=== PATIENT | male | born 1940 | race Caucasian/White ===

== ENCOUNTER 2017-09-03 21:17 | Inpatient (IN) | payer MEDICARE, MEDICAID ==
[~2017-09-03] VITALS: Ht 172.7 cm; Wt 73.5 kg
--- NOTE | 2017-09-03 21:20 | NUR ---
PT TO ER BED 7. PT BIBRA C/O LOWER EXTREM EDEMA X 2 DAYS. PT PLACED IN GOWN AND ON PLASTIC SURGERY SPECIALIST. VSS/RESP EVEN UNLABORED/NAD NOTED/SKIN WARM AND DRY/DENIES N-V-D/AOX4. AWAITING MD JAY.
--- NOTE | 2017-09-03 21:20 | NUR ---
Note undone in EDM - 09/03/17 at 2308 by GABBY PT AMBULATORY TO ER BED 6 WITH CAREGIVER. PT BIBRA C/O LOWER EXTREM EDEMA X 2 DAYS. PT PLACED IN GOWN AND ON GRAVITY PROSPECTING OPERATOR. VSS/RESP EVEN UNLABORED/NAD NOTED/SKIN WARM AND DRY/DENIES N-V-D/AOX4. AWAITING MD JAY.
--- NOTE | 2017-09-03 21:30 | NUR ---
AT BEDSIDE FOR EVAL.
--- NOTE | 2017-09-03 22:00 | NUR ---
22G TO R WRIST USING ASEPTIC TECH, BLOOD OBTAINED AND HANDED OVER TO LAB AT BEDSIDE.
[2017-09-03 22:20] LABS: BASOPHILS % (AUTO) 0.3 % (0.0-2.0); EOSINOPHILS # (AUTO) 0.1 /CMM (0.0-0.7); EOSINOPHILS % (AUTO) 1.2 % (0.0-6.0); HEMATOCRIT 32 % (39-51); HEMOGLOBIN 10.4 g/dL (13.5-17.5); LYMPHOCYTES # (AUTO) 1.3 /CMM (0.8-4.8); LYMPHOCYTES % (AUTO) 14.5 % (20.0-44.0); MEAN CORPUSCULAR HEMOGLOBIN 34 PG (26.0-33.0); MEAN CORPUSCULAR HGB CONC 33 g/dl (31.0-36.0); MEAN CORPUSCULAR VOLUME 103 fL (80-96); MONOCYTES # (AUTO) 0.7 /CMM (0.1-1.30); MONOCYTES % (AUTO) 7.7 % (2.0-12.0); NEUTROPHILS # (AUTO) 6.9 /CMM (1.8-8.9); NEUTROPHILS % (AUTO) 76.3 % (43.0-81.0); PLATELET COUNT (AUTO) 521 /CMM (150-450); RDW COEFFICIENT OF VARIATION 21.3 (11.5-15.0); RED BLOOD CELL COUNT(AUTO) 3.08 MIL/uL (4.5-6.0); WHITE BLOOD COUNT (AUTO) 9.1 K/uL (4.3-11.0)
[2017-09-03 22:35] LABS: CALCIUM, SERUM 8.6 mg/dL (8.5-10.1); CARBON DIOXIDE 28 mmol/L (21-32); CHLORIDE 103 mmol/L (98-107); GLUCOSE 102 mg/dL (74-106); POTASSIUM 4.1 mmol/L (3.5-5.1); SODIUM SERUM 138 mmol/L (136-145); UREA NITROGEN, BLOOD 18 mg/dL (7-18)
[2017-09-03 22:38] LABS: INR 1.1 (0.87-1.13); PROTHROMBIN TIME 11.4 SECS (9.5-12.7)
[2017-09-03 22:43] LABS: TROPONIN I < 0.017 ng/mL (0.00-0.056)
[2017-09-03 22:48] LABS: ALANINE AMINOTRANSFERASE 54 U/L (12-78); ALBUMIN 2.2 g/dL (3.4-5.0); ALKALINE PHOSPHATASE 462 U/L (46-116); ASPARTATE AMINOTRANSFERASE 53 U/L (15-37); B-TYPE NATRIURETIC PEPTIDE 477 PG/ML (0-125); BILIRUBIN,DIRECT 0.3 mg/dL (0.0-0.2); BILIRUBIN,TOTAL 0.7 mg/dL (0.2-1.0); TOTAL PROTEIN, SERUM 6.9 g/dL (6.4-8.2)
--- NOTE | 2017-09-03 23:25 | NUR ---
ULTRASOUND AT BEDSIDE.
--- NOTE | 2017-09-03 23:55 | NUR ---
CALLED DIRECTOR OF AUTOMATION FOR TELE BED
--- NOTE | 2017-09-03 23:56 | NUR ---
PHONE NUMBER FOR DAUGHTER [phone].
[2017-09-04] MEDS ORDERED: MAG HYDROX/AL HYDROX/SIMETH 30 ML UDC PO PRN
[2017-09-04] MEDS ORDERED: ENOXAPARIN SODIUM 40 MG/0.4 ML DISP.SYRIN SQ SCH
[2017-09-04] MEDS ORDERED: MAGNESIUM HYDROXIDE 30 ML UDC PO PRN
[2017-09-04] MEDS ORDERED: ZOLPIDEM TARTRATE 5 MG TABLET PO PRN
[2017-09-04] MEDS ORDERED: ACETAMINOPHEN 325 MG TABLET PO PRN
[2017-09-04] MEDS ORDERED: Z GUARD REMEDY 2 OZ OINT TP PRN
[2017-09-04] MEDS ORDERED: ONDANSETRON HCL/PF 4 MG/2 ML VIAL IVP PRN
[2017-09-04] MEDS ORDERED: HYDROCODONE/APAP 10/325MG 1 EA TABLET PO PRN
[2017-09-04] MEDS ORDERED: HYDROCODONE/APAP 5/325MG 1 EACH TABLET PO PRN
--- NOTE | 2017-09-04 01:54 | NUR ---
REPORT GIVEN TO SHAMA BRAY FOR GERALD.
--- NOTE | 2017-09-04 02:27 | NUR ---
PT TRANSPORTED TO [place] [id number] VIA STRETCHER WITH RN PER ACLS PROTOCOL. VSS.
--- NOTE | 2017-09-04 02:35 | NUR ---
RN ADMITTING NOTES RECEIVED REPORT FROM PASTRY COOK APPRENTICE KIMBERLY. Pt ARRIVED TO FLOOR VIA GURNEY. Pt IS A/OX3, WITH SOME MEMORY LOSS AND CONFUSION AT TIMES, IS VERBAL, ABLE TO MAKE NEEDS KNOWN. NO C/O CHEST PAIN AT THIS TIME. NO S/S OF ACUTE DISTRESS OR SEVERE SOB NOTED. IV ACCESS ON RWRIST #22G, SL. ON TELE MONITOR. SAFETY MEASURES IN PLACE. BED LOW, LOCKED, HOB ELEVATED, SIDE RAILS UP, CALL LIGHT AND BEDSIDE TABLE WITHIN REACH. WILL CONTINUE TO MONITOR Pt THROUGHOUT THE NIGHT FOR SAFETY.
[2017-09-04] MEDS ORDERED: ENOXAPARIN SODIUM 40 MG/0.4 ML DISP.SYRIN SQ ONE ×2 (04:06)
--- NOTE | 2017-09-04 06:50 | NUR ---
RN CLOSING NOTES NO SIGNIFICANT CHANGES IN Pt's CONDITION. ALL NEEDS MET AND ATTENDED TO. TELE READING AFIB 96-124. SAFETY MEASURES IN PLACE. WILL ENDORSE TO DAYSHIFT RN FOR Pt's GERALD.
--- NOTE | 2017-09-04 07:30 | NUR ---
TEAM SUPERVISOR/OPENING NOTES RECEIVED PT. IN BED A&OX4. TELE READING ATRIAL FLUTTER 125 BPM. PT. BREATHING ON OXYGEN 2L/MIN VIA NASAL CANNULA WITH C/O DIFFICULTY BREATHING. HEAD OF BED IS UP. IV ON RIGHT WRIST INTACT. NO S/S OF ACUTE DISTRESS. BED IS IN LOWEST AND LOCKED POSITION. 2 SIDE RAILS UP. INSTRUCTED PT.T O USE CALL LIGHT WITHIN REACH FOR ASSISTANCE.
--- NOTE | 2017-09-04 07:45 | NUR ---
VALIDATION INTERN/ NOTES PT. WAS SEEN AND EXAMINED BY DR. HENDERSON.
[2017-09-04 08:00] VITALS: BP 112/71
[2017-09-04] MEDS ORDERED: POTASSIUM CHLORIDE 20 MEQ TAB.PRT.SR PO SCH ×2 (08:00→10:00)
--- NOTE | 2017-09-04 08:45 | NUR ---
FORENSIC DOCUMENT EXAMINER/NOTES PT.'S DAUGHTER WAS AT THE BEDSIDE. PROVIDED SNEHA, DAUGHTER PT.'S HEALTH STATUS, AND NEW ORDERS FROM MD. DAUGHTER IS AWARE PT. WILL BE TRANSFERRED TO [facility].
[2017-09-04] MEDS ORDERED: AMIODARONE 150 MG in IV D5W 100 ML IV ONE (09:00)
[2017-09-04] MEDS ORDERED: FUROSEMIDE 40 MG/4 ML VIAL IV SCH (09:00)
[2017-09-04] MEDS ORDERED: AMIODARONE 900 MG in IV D5W 500 ML IV PRN ×2 (09:00→12:00)
[2017-09-04 09:11] LABS: BASOPHILS % (AUTO) 0.5 % (0.0-2.0); EOSINOPHILS # (AUTO) 0.2 /CMM (0.0-0.7); EOSINOPHILS % (AUTO) 2.5 % (0.0-6.0); HEMATOCRIT 30 % (39-51); HEMOGLOBIN 10.2 g/dL (13.5-17.5); LYMPHOCYTES # (AUTO) 1.4 /CMM (0.8-4.8); LYMPHOCYTES % (AUTO) 18.5 % (20.0-44.0); MEAN CORPUSCULAR HEMOGLOBIN 34 PG (26.0-33.0); MEAN CORPUSCULAR HGB CONC 34 g/dl (31.0-36.0); MEAN CORPUSCULAR VOLUME 103 fL (80-96); MONOCYTES # (AUTO) 0.7 /CMM (0.1-1.30); MONOCYTES % (AUTO) 9.1 % (2.0-12.0); NEUTROPHILS # (AUTO) 5.4 /CMM (1.8-8.9); NEUTROPHILS % (AUTO) 69.4 % (43.0-81.0); PLATELET COUNT (AUTO) 496 /CMM (150-450); RDW COEFFICIENT OF VARIATION 21.5 (11.5-15.0); RED BLOOD CELL COUNT(AUTO) 2.96 MIL/uL (4.5-6.0); WHITE BLOOD COUNT (AUTO) 7.8 K/uL (4.3-11.0)
[2017-09-04] MEDS: DOCUSATE SODIUM 100 MG CAPSULE PO SCH ×2 (09:33→17:08)
[2017-09-04] MEDS: PANTOPRAZOLE 40 MG TABLET.DR PO SCH (09:33)
[2017-09-04] MEDS: CARVEDILOL 3.125 MG TABLET PO SCH ×2 (09:33→17:09)
[2017-09-04 09:34] LABS: IRON, SERUM 53 ug/dl (50-175); TOTAL IRON BINDING CAPACITY 186 ug/dl (250-450)
[2017-09-04 09:35] LABS: CALCIUM, SERUM 8.5 mg/dL (8.5-10.1); CARBON DIOXIDE 26 mmol/L (21-32); CHLORIDE 102 mmol/L (98-107); CREATININE 0.7 mg/dL (0.6-1.3); GLUCOSE 91 mg/dL (74-106); MAGNESIUM 2.1 mg/dL (1.8-2.4); PHOSPHORUS 3.3 mg/dL (2.5-4.9); POTASSIUM 3.9 mmol/L (3.5-5.1); SODIUM SERUM 138 mmol/L (136-145); UREA NITROGEN, BLOOD 15 mg/dL (7-18)
[2017-09-04 10:11] LABS: ALANINE AMINOTRANSFERASE 52 U/L (12-78); ALBUMIN 2.1 g/dL (3.4-5.0); ALKALINE PHOSPHATASE 420 U/L (46-116); ASPARTATE AMINOTRANSFERASE 46 U/L (15-37); BILIRUBIN,DIRECT 0.2 mg/dL (0.0-0.2); BILIRUBIN,TOTAL 0.6 mg/dL (0.2-1.0); TOTAL PROTEIN, SERUM 6.5 g/dL (6.4-8.2)
[2017-09-04 10:16] LABS: CHOLESTEROL 172 mg/dL (<200); FERRITIN 378 ng/mL (8-388); HDL CHOLESTEROL 34 mg/dL (40-60); LDL 119 mg/dL (0-99); THYROID STIMULATING HORMONE 2.348 uIU/mL (0.358-3.74); TRIGLYCERIDES 100 mg/dL (30-150)
[2017-09-04 10:18] LABS: TROPONIN I < 0.017 ng/mL (0.00-0.056)
[2017-09-04 10:45] VITALS: BP 108/71
--- NOTE | 2017-09-04 10:54 | NUR ---
AVIATION ORDNANCE OFFICER TO [facility] PT. WAS TRANSFERRED TO [facility] ROOM 115 BED 1, WITH TELE MONITOR ON, AND OXYGEN WITH FOOD AND BEVERAGE MANAGER. IV WA REMOVED BEFORE TRANSFER DUE TO IV ON RIGHT WRIST WAS LEAKING. PER DAUGHTER PT. HAD A HX. OF LEFT ARM BLOOD CLOT AND REQUESTED TO NOT START AN IV ON THE LEFT ARM, ENDORSED TO [facility] NURSE. REPORT WAS GIVEN AT THE BEDSIDE TO JUAN SESAY. AMIODARONE MEDICATION WAS BROUGHT TO [facility]. PT. TOLERATED TRANSFER WELL.
--- NOTE | 2017-09-04 11:35 | NUR ---
RN NOTES NOTIFIED DR HENDERSON THAT PATIENT CONVERTED TO SINUS RHYTHM HR=63, RECEIVED ORDER TO CONTINUE AMIODARONE DRIP PER ORDER. ORDER NOTED AND CARRIED OUT.WILL CONT TO MONITOR.
[2017-09-04 12:00] VITALS: BP 104/63
[2017-09-04 16:00] VITALS: BP 115/68
[2017-09-04] MEDS: RIVAROXABAN 10 MG TABLET PO SCH (17:10)
--- NOTE | 2017-09-04 19:24 | NUR ---
RN NOTES PATIENT ENDORSED TO NEXT SHIFT IN STABLE CONDITION FOR CONTINUITY OF CARE. NO SIGNIFICANT CHANGES NOTED. KEPT CLEAN, DRY AND COMFORTABLE. ALL NEEDS ATTENDED. SAFETY MEASURE OBSERVED. CALL LIGHT WITH IN REACH. WILL CONT TO MONITOR.
[2017-09-04 20:00] VITALS: BP 116/63
[2017-09-05] VITALS: BP 127/62
[2017-09-05 04:00] VITALS: BP 119/59
--- NOTE | 2017-09-05 07:12 | NUR ---
RN INITIAL NOTES: REC'D PT ASLEEP ON BED, A/O X 2 W/ PERIODS OF FORGETFULNESS, NOT IN ANY DISTRESS. ON NC AT 2LPM, NO SOB. ON TELEMONITOR, SB, HR 53 BPM. HAS R HAND G20, PL, PATENT & INTACT W/ NO S/SX OF INFECTION/INFILTRATION NOTED, ON AMIODARONE DRIP X 0.5 MG/MIN - CLAMPED AT THIS TIME D/T LOW HR. PROVIDED COMFORT & SAFETY MEASURES. BED KEPT LOW & IN LOCKED POS. CALL LIGHT PLACED W/IN REACH. WILL CONTINUE TO MONITOR AND ATTEND PT NEEDS.
[2017-09-05 08:00] VITALS: BP 123/67
[2017-09-05 08:32] LABS: BASOPHILS % (AUTO) 0.5 % (0.0-2.0); EOSINOPHILS # (AUTO) 0.2 /CMM (0.0-0.7); EOSINOPHILS % (AUTO) 2.8 % (0.0-6.0); HEMATOCRIT 29 % (39-51); HEMOGLOBIN 9.8 g/dL (13.5-17.5); LYMPHOCYTES # (AUTO) 1.1 /CMM (0.8-4.8); LYMPHOCYTES % (AUTO) 15.8 % (20.0-44.0); MEAN CORPUSCULAR HEMOGLOBIN 35 PG (26.0-33.0); MEAN CORPUSCULAR HGB CONC 34 g/dl (31.0-36.0); MEAN CORPUSCULAR VOLUME 104 fL (80-96); MONOCYTES # (AUTO) 0.7 /CMM (0.1-1.30); MONOCYTES % (AUTO) 9.3 % (2.0-12.0); NEUTROPHILS % (AUTO) 71.6 % (43.0-81.0); PLATELET COUNT (AUTO) 423 /CMM (150-450)
[2017-09-05 08:50] LABS: ALANINE AMINOTRANSFERASE 39 U/L (12-78); ALBUMIN 2.2 g/dL (3.4-5.0); ALKALINE PHOSPHATASE 396 U/L (46-116); ASPARTATE AMINOTRANSFERASE 34 U/L (15-37); BILIRUBIN,TOTAL 0.7 mg/dL (0.2-1.0); CALCIUM, SERUM 8.7 mg/dL (8.5-10.1); CARBON DIOXIDE 28 mmol/L (21-32); CHLORIDE 106 mmol/L (98-107); CREATININE 0.9 mg/dL (0.6-1.3); GLUCOSE 96 mg/dL (74-106); PHOSPHORUS 3.2 mg/dL (2.5-4.9); SODIUM SERUM 142 mmol/L (136-145); TOTAL PROTEIN, SERUM 6.5 g/dL (6.4-8.2); UREA NITROGEN, BLOOD 13 mg/dL (7-18)
[2017-09-05] MEDS: PANTOPRAZOLE 40 MG TABLET.DR PO SCH (08:59)
[2017-09-05] MEDS: DOCUSATE SODIUM 100 MG CAPSULE PO SCH ×2 (08:59→17:11)
[2017-09-05] MEDS: CARVEDILOL 3.125 MG TABLET PO SCH ×2 (09:00→17:12)
[2017-09-05] MEDS ORDERED: ENOXAPARIN SODIUM 40 MG/0.4 ML DISP.SYRIN SQ SCH (09:00)
--- NOTE | 2017-09-05 11:00 | NUR ---
RN NOTES: PT SEEN & EXAMINED BY DR. HENDERSON W/ ORDERS MADE & CARRIED OUT. WAS ABLE TO TALK TO DTBlanca HOOVER.
[2017-09-05 12:00] VITALS: BP_SYST 117; BP_SYST 119; BP_DIAS 68
[2017-09-05] MEDS: FUROSEMIDE 40 MG/4 ML VIAL IV SCH ×3 (13:40→20:41)
[2017-09-05] MEDS: AMIODARONE HCL 200 MG TABLET PO SCH ×2 (13:41→17:12)
--- NOTE | 2017-09-05 15:00 | NUR ---
RN NOTES: TELEPHONE CONSENT FOR EGD, ANESTHESIA AND BLOOD TRANSFUSION GOT FROM PT'S DTR SNEHA. CONFIRMED CONSENT W/ CO-NURSE SHAMA WU.
[2017-09-05] MEDS ORDERED: POLYETHYLENE GLYCOL 3350 17 GM POWD.PACK PO PRN (15:30)
[2017-09-05 16:00] VITALS: BP 125/81
--- NOTE | 2017-09-05 16:00 | NUR ---
RN NOTES: PT SEEN & EXAMINED BY EJWEL THOMAS AND WAS ABLE TO TALK TO DTR SNEHA. ALL QUERIES OF THE DTR DISCUSSED AND ANSWERED BY JEWEL THOMAS.
[2017-09-05] MEDS: RIVAROXABAN 10 MG TABLET PO SCH (17:13)
--- NOTE | 2017-09-05 19:00 | NUR ---
RN CLOSING NOTES: NO ACUTE CHANGES NOTED W/IN SHIFT. PT TOLERATED NC AT 2LPM, NO SOB. TRIED ROOM AIR, SATING AT 96% BUT PT WANTED HIS O2 ON WHILE HE SLEEPS. ON TELEMONITOR, STILL SB/SR. R HAND G20, SL, KEPT PATENT & INTACT W/ NO S/SX OF INFECTION/INFILTRATION NOTED, OFF AMIODARONE DRIP. PLACED CONDOM CATH DUE TO LASIX MEDICATIONS. KEPT WELL RESTED. NEEDS ATTENDED. BED KEPT LOW & IN LOCKED POS. CALL LIGHT PLACED W/IN REACH. DTR AT BEDSIDE. PT INSTRUCTED NPO W/ VERBALIZATION OF UNDERSTANDING. WILL ENDORSE TO PM RN FOR GERALD.
--- NOTE | 2017-09-05 19:30 | NUR ---
RN INITIAL NOTES: RECEIVED PATIENT ASLEEP ON BED, EASILY AROUSABLE PATIENT IS A/O X 2 W/ PERIODS OF FORGETFULNESS. NOT IN ANY ACUTE DISTRESS AT THIS TIME. ON O2 VIA NC AT 2LPM, NO SOB. ON TELEMETRY MONITORING, SB, HR 55 BPM. R HAND IV LEAKING WHEN FLUSHED, IV REMOVED WITH CANNULA INTACT, NEW PERIPHERAL IV INSERTED, # 22G TO RIGHT FOREARM. PROVIDED COMFORT & SAFETY MEASURES. BED KEPT LOW & IN LOCKED POSITION. CALL LIGHT PLACED WITHIN EASY REACH. WILL CONTINUE TO MONITOR AND ATTEND PATIENT NEEDS.
[2017-09-05 20:00] VITALS: BP 113/61
[2017-09-06] VITALS: BP 117/68
--- NOTE | 2017-09-06 | NUR ---
RN NOTES PATIENT NPO, SCHEDULED FOR EGD IN AM. PATIENT VERBALIZES UNDERSTANDING REGARDING NPO STATUS FOR PROCEDURE
[2017-09-06 01:14] LABS: APPEARANCE,URINE CLEAR (CLEAR); BILIRUBIN,URINE NEGATIVE (NEGATIVE); BLOOD, URINE NEGATIVE Ery/uL (NEGATIVE); COLOR,URINE YELLOW (YELLOW); KETONES,URINE NEGATIVE (NEGATIVE); LEUKOCYTE ESTERASE ,URINE NEGATIVE (NEGATIVE); NITRITE, URINE NEGATIVE (NEGATIVE); PROTEIN,URINE NEGATIVE (NEGATIVE); UGLUCOSE NEGATIVE (NEGATIVE); UROBILINOGEN,URINE 0.2 EU/dL (0.2)
[2017-09-06 04:00] VITALS: BP 106/72
--- NOTE | 2017-09-06 04:00 | NUR ---
RN NOTES 0400 PATIENT NOTED TO INTERMITTENTLY REVERT BACK TO AFIB, CONTROLLED RATE IN THE 90s. PATIENT ANXIOUS AT THIS TIME. OFFERED MEDICATION BUT PATIENT REFUSES. COACHED THE PATIENT TO PERFORM DEEP BREATHING EXERCISES, UTILIZED GUIDED IMAGERY TO AID IN RELAXATION. 0600 PATIENT VERBALIZES THAT HE IS "FEELING BETTER." PATIENT CONVERTED BACK TO SINUS RHYTHM, SINUS BRADYCARDIA. ENCOURAGED PATIENT TO VERBALIZE FEARS SO THAT STAFF ARE ABLE TO HELP THE PATIENT.
--- NOTE | 2017-09-06 07:00 | NUR ---
RN CLOSING NOTES PATIENT RESTING COMFORTABLY IN BED, DENIES ANY FEELINGS OF ANXIETY AT THIS TIME. WILL ENDORSE THE PATIENT TO THE AM SHIFT NURSE FOR GERALD
[2017-09-06] MEDS: PANTOPRAZOLE 40 MG TABLET.DR PO SCH (07:30)
[2017-09-06 07:36] LABS: BASOPHILS # (AUTO) 0.1 /CMM (0.0-0.2); BASOPHILS % (AUTO) 0.7 % (0.0-2.0); EOSINOPHILS # (AUTO) 0.1 /CMM (0.0-0.7); EOSINOPHILS % (AUTO) 1.8 % (0.0-6.0); HEMATOCRIT 36 % (39-51); HEMOGLOBIN 12.2 g/dL (13.5-17.5); LYMPHOCYTES # (AUTO) 1.2 /CMM (0.8-4.8); MEAN CORPUSCULAR HEMOGLOBIN 35 PG (26.0-33.0); MEAN CORPUSCULAR HGB CONC 34 g/dl (31.0-36.0); MEAN CORPUSCULAR VOLUME 103 fL (80-96); MONOCYTES # (AUTO) 0.7 /CMM (0.1-1.30); MONOCYTES % (AUTO) 8.4 % (2.0-12.0); NEUTROPHILS % (AUTO) 74.1 % (43.0-81.0); PLATELET COUNT (AUTO) 411 /CMM (150-450); RDW COEFFICIENT OF VARIATION 21.6 (11.5-15.0); RED BLOOD CELL COUNT(AUTO) 3.54 MIL/uL (4.5-6.0)
[2017-09-06 08:00] VITALS: BP 103/52
[2017-09-06 08:16] LABS: CALCIUM, SERUM 9.4 mg/dL (8.5-10.1); CARBON DIOXIDE 30 mmol/L (21-32); CHLORIDE 100 mmol/L (98-107); CREATININE 0.9 mg/dL (0.6-1.3); GLUCOSE 103 mg/dL (74-106); MAGNESIUM 2.1 mg/dL (1.8-2.4); PHOSPHORUS 3.8 mg/dL (2.5-4.9); POTASSIUM 3.7 mmol/L (3.5-5.1); SODIUM SERUM 139 mmol/L (136-145); UREA NITROGEN, BLOOD 16 mg/dL (7-18)
[2017-09-06] MEDS: DOCUSATE SODIUM 100 MG CAPSULE PO SCH ×2 (08:40→18:08)
[2017-09-06] MEDS: AMIODARONE HCL 200 MG TABLET PO SCH ×2 (08:41→18:13)
[2017-09-06] MEDS: CARVEDILOL 3.125 MG TABLET PO SCH ×2 (08:43→18:12)
[2017-09-06] MEDS: POTASSIUM CHLORIDE 20 MEQ TAB.PRT.SR PO SCH ×2 (11:00→12:00)
[2017-09-06 12:00] VITALS: BP 105/55
[2017-09-06] MEDS: FUROSEMIDE 40 MG/4 ML VIAL IV SCH ×3 (13:05→18:07)
[2017-09-06 16:00] VITALS: BP 125/63
--- NOTE | 2017-09-06 16:25 | NUR ---
GROOMING ASSISTANT NOTES PT ON SURGERY (EGD)
[2017-09-06] MEDS: RIVAROXABAN 10 MG TABLET PO SCH (18:08)
--- NOTE | 2017-09-06 19:54 | NUR ---
POLYSOMNOGRAPHER NOTES RECEIVED PT ON BED. SLEEPING. A/OX4. ON ROOM AIR TOLERATING WELL. NO SIGN OF RESPIRATORY DISTRESS. IV ACCESS TOLERATING WELL. PT IS NPO. HEAD OF BED ELEVATED. SIDE RAILS UP. WILL CONTINUE TO MONITOR PT CLOSELY.
--- NOTE | 2017-09-06 19:55 | NUR ---
MANAGER TRANSFER NOTES NO ACUTE CHANGES NOTED DURING THE SHIFT. DUE MEDS GIVEN. ENDORSED TO THE PM NURSE.
[2017-09-06 20:00] VITALS: BP 111/68
[2017-09-07] VITALS: BP 110/66
[2017-09-07 04:00] VITALS: BP 109/68
[2017-09-07] MEDS: PANTOPRAZOLE 40 MG TABLET.DR PO SCH (07:58)
[2017-09-07 08:00] VITALS: BP 95/62
[2017-09-07] MEDS ORDERED: PEG 3350/NA SULF,BICARB,CL/KCL 4,000 ML BOTTLE PO ONE (09:00)
[2017-09-07] MEDS: CARVEDILOL 3.125 MG TABLET PO SCH ×2 (09:00→17:00)
[2017-09-07 09:04] LABS: BASOPHILS % (AUTO) 0.5 % (0.0-2.0); EOSINOPHILS # (AUTO) 0.1 /CMM (0.0-0.7); EOSINOPHILS % (AUTO) 1.2 % (0.0-6.0); HEMATOCRIT 36 % (39-51); LYMPHOCYTES # (AUTO) 1.4 /CMM (0.8-4.8); LYMPHOCYTES % (AUTO) 18.6 % (20.0-44.0); MEAN CORPUSCULAR HEMOGLOBIN 34 PG (26.0-33.0); MEAN CORPUSCULAR HGB CONC 33 g/dl (31.0-36.0); MEAN CORPUSCULAR VOLUME 101 fL (80-96); MONOCYTES # (AUTO) 0.7 /CMM (0.1-1.30); MONOCYTES % (AUTO) 9.1 % (2.0-12.0); NEUTROPHILS # (AUTO) 5.3 /CMM (1.8-8.9); NEUTROPHILS % (AUTO) 70.6 % (43.0-81.0); PLATELET COUNT (AUTO) 448 /CMM (150-450); RDW COEFFICIENT OF VARIATION 20.4 (11.5-15.0); RED BLOOD CELL COUNT(AUTO) 3.55 MIL/uL (4.5-6.0); WHITE BLOOD COUNT (AUTO) 7.5 K/uL (4.3-11.0)
[2017-09-07] MEDS: DOCUSATE SODIUM 100 MG CAPSULE PO SCH ×2 (09:05→17:34)
[2017-09-07] MEDS: AMIODARONE HCL 200 MG TABLET PO SCH ×2 (09:06→17:34)
[2017-09-07 09:16] LABS: ALANINE AMINOTRANSFERASE 40 U/L (12-78); ALBUMIN 2.4 g/dL (3.4-5.0); ALKALINE PHOSPHATASE 405 U/L (46-116); ASPARTATE AMINOTRANSFERASE 30 U/L (15-37); BILIRUBIN,TOTAL 0.6 mg/dL (0.2-1.0); CALCIUM, SERUM 8.9 mg/dL (8.5-10.1); CARBON DIOXIDE 32 mmol/L (21-32); CHLORIDE 101 mmol/L (98-107); GLUCOSE 104 mg/dL (74-106); MAGNESIUM 1.9 mg/dL (1.8-2.4); PHOSPHORUS 3.5 mg/dL (2.5-4.9); POTASSIUM 3.5 mmol/L (3.5-5.1); SODIUM SERUM 142 mmol/L (136-145); TOTAL PROTEIN, SERUM 7.3 g/dL (6.4-8.2); UREA NITROGEN, BLOOD 24 mg/dL (7-18)
--- NOTE | 2017-09-07 09:24 | NUR ---
WOUND CARE CONSULT: PT PRESENTS WITH BLANCHABLE REDNESS TO SACRUM. PT ALSO NOTED TO HAVE CALLUSES TO HEELS. ALL SKIN PROTECTION MEASURES IN PLACE AND DISCUSSED WITH NURSING STAFF. CURRENT KATHIE SCORE IS 16. WILL SEE PRN. DUFFY IN AGREEMENT WITH PLAN OF CARE. Addendum: 09/07/17 at 0926 by NETTA FLEMING WNDNU Amended: Links added.
[2017-09-07] MEDS ORDERED: MINERAL OIL/PETROLATUM,WHITE 120 GM JAR TP PRN (09:30)
--- NOTE | 2017-09-07 11:30 | NUR ---
- Spoke to JEWEL Smith RE: GOLYTELY & MAG CITRATE & responded to hold meds since there is no reason to administer after she was informed of no order for colonoscopy but a planned schedule was read in DR. Barragan's notes for a Monday schedule if patient agrees.
[2017-09-07 14:00] VITALS: BP 95/62
[2017-09-07 16:00] VITALS: BP_SYST 114; BP_SYST 94; BP_DIAS 60; BP_DIAS 69
[2017-09-07] MEDS ORDERED: MAGNESIUM CITRATE 296 ML BOTTLE PO ONE (17:00)
[2017-09-07] MEDS: RIVAROXABAN 10 MG TABLET PO SCH (17:33)
--- NOTE | 2017-09-07 18:22 | NUR ---
RN CLOSING NOTES: - patient was visited by JEWEL Smith this pm & gave out no new orders., remained on room-air,non-labored respirations, tolerating meals, & denies pain . Was able to participate in PHYSICAL THERAPY eval but right leg shows not to have weight bearing per PT, but an order is placed to continue PT .
[2017-09-07 20:00] VITALS: BP 109/71
--- NOTE | 2017-09-08 03:30 | NUR ---
MS RN NOTES TRANSFERRED CARE OF PATIENT AND GAVE REPORT TO SHAMA SANCHEZ
--- NOTE | 2017-09-08 03:40 | NUR ---
MS RN NOTES RECEIVED PT IN BED, RESTING AT THIS TIME, A/O X4 FORGETFUL. AROUSES EASILY. VERBALLY RESPONSIVE. NO DISTRESS, NO SOB NOTED AT THIS TIME. RESPIRATION IS EVEN AND UNLABORED. IV SITE ON RFA INTACT AND PATENT , NO S/S OF INFILTRATION NOTED. ALL NEEDS ATTENDED AND MET. SAFETY PRECAUTIONS OBSERVED. CALL LIGHT WITHIN REACH. WILL CONT TO MONITOR .
--- NOTE | 2017-09-08 06:00 | NUR ---
SAMANTHA PALMER SUP AND KATHLEEN , CHARGE NURSE AWARE THAT THE PT REFUSED COLONOSCOPY TODAY.
--- NOTE | 2017-09-08 06:37 | NUR ---
MS RN NOTES PT IN BED, RESTING AT THIS TIME, A/O X4 FORGETFUL. AROUSES EASILY. VERBALLY RESPONSIVE. NO DISTRESS, NO SOB NOTED AT THIS TIME. RESPIRATION IS EVEN AND UNLABORED. IV SITE ON RFA INTACT AND PATENT , NO S/S OF INFILTRATION NOTED. ALL NEEDS ATTENDED AND MET. SAFETY PRECAUTIONS OBSERVED. CALL LIGHT WITHIN REACH. WILL ENDORSE TO NEXT SHIFT FOR GERALD. .
[2017-09-08 07:18] LABS: *SPE A/G RATIO 0.7 (0.7-1.7); *SPE ALBUMIN 2.5 g/dL (2.9-4.4); *SPE ALPHA-1-GLOBULIN 0.4 g/dL (0.0-0.4); *SPE ALPHA-2-GLOBULIN 1.1 g/dL (0.4-1.0); *SPE BETA GLOBULIN 1.2 g/dL (0.7-1.3); *SPE GLOBULIN, TOTAL 3.6 g/dL (2.2-3.9); *SPE M-SPIKE Not Observed g/dL (Not Observed); *SPEGAMMA GLOBULIN 0.9 g/dL (0.4-1.8)
[2017-09-08 08:00] VITALS: BP 117/60
[2017-09-08] MEDS: DOCUSATE SODIUM 100 MG CAPSULE PO SCH ×2 (08:25→17:00)
[2017-09-08] MEDS: PANTOPRAZOLE 40 MG TABLET.DR PO SCH (08:31)
[2017-09-08] MEDS: AMIODARONE HCL 200 MG TABLET PO SCH ×2 (08:32→17:02)
[2017-09-08] MEDS: CARVEDILOL 3.125 MG TABLET PO SCH ×2 (08:32→17:03)
[2017-09-08] MEDS ORDERED: CARV3.122 PO (10:31)
[2017-09-08] MEDS ORDERED: AMIO200T7 PO (10:31)
[2017-09-08] MEDS ORDERED: RIVA10TA PO (10:31)
[2017-09-08] MEDS: RIVAROXABAN 10 MG TABLET PO SCH (17:02)
[2017-09-08 17:03] VITALS: BP 125/60
--- NOTE | 2017-09-08 17:05 | NUR ---
discharge instructions given regarding medications, follow up appointments, activities and diet with pt and Vijaya, daughter. . HL removed. Taken CD to Radiology for copy as Dr Brock requested. daughter will pear picker CD on Monday.
--- NOTE | 2017-09-08 17:16 | NUR ---
Radiology stated that they cannot input a copy of CD into our system. Texted Dr Brock that daughter Vijaya will contact him on Monday to show the CD, daughter understood.
[2017-09-08] MEDS ORDERED: LEVOFLOXACIN (750 MG) 750 MG TABLET PO SCH (17:30)
== END 2017-09-08 17:28 | disposition home or self-care (01) | DRG 291 ==
LOC: ER 21:18 → TELE 09-04 01:45 → TELE-TD 09-04 10:30 → TELE1 09-05 12:22 → MEDSG1 09-07 11:37
PROVIDERS: ADMIT Internal Medicine; ATTEND Internal Medicine
PROC: 0DB68ZX Excision of Stomach, Via Natural or Artificial Opening Endoscopic, Diagnostic (ICD-10-PCS; principal; 2017-09-06 16:05)
DX: I11.0 Hypertensive heart disease with heart failure (principal); J18.9 Pneumonia, unspecified organism; D68.59 Other primary thrombophilia; K22.0 Achalasia of cardia; I48.92 Unspecified atrial flutter; I48.0 Paroxysmal atrial fibrillation; I82.811 Embolism and thrombosis of superficial veins of right lower extremity; D53.9 Nutritional anemia, unspecified; I50.23 Acute on chronic systolic (congestive) heart failure; F03.90 Unspecified dementia, unspecified severity, without behavioral disturbance, psychotic disturbance, mood disturbance, and anxiety; Z86.718 Personal history of other venous thrombosis and embolism; Z87.820 Personal history of traumatic brain injury; K59.00 Constipation, unspecified; K21.9 Gastro-esophageal reflux disease without esophagitis; K29.70 Gastritis, unspecified, without bleeding; Z96.642 Presence of left artificial hip joint; V89.2XXS Person injured in unspecified motor-vehicle accident, traffic, sequela; R91.8 Other nonspecific abnormal finding of lung field
CPT/HCPCS: 36415; 71045-TC; 73552; 76700-TC; 80048-TC; 80053-TC; 80061-TC; 80076-TC; 81000-TC; 82306; 82728-TC; 82746; 83540-TC; 83735-TC; 83880; 84100-TC; 84155; 84165; 84439-TC; 84443-TC; 84484-TC; 85025-TC; 85730-TC; 86850-TC; 87081-TC; 88305-TC; 88313-TC; 88342; 93307-TC; 93970-TC; 97110-TC; 97116-TC; A4349; A4606; A6402; J0282; J1650; J1940; J2704; J7060; Z7610